=== PATIENT | female | born 1990 | race Caucasian/White ===

== ENCOUNTER 2023-09-26 09:44 | Outpatient (CLI) | payer BC, SELFPAY ==
--- NOTE | 2023-09-26 10:15 | MR_ITS ---
Patient: TAMMY MIRANDA Facility:?[facility] Patient ID:?[id number] Site Patient ID:?[id number]. Site :?[id number] Study:?MRI-Spine Lumbar W/O-09/26/2023 10:36:39 AM Ordering Physician:TAMMY PÉREZ Final Report: INDICATION: Low back pain. Left leg and foot pain. TECHNIQUE: Multiplanar multisequence MR imaging of the lumbar spine without intravenous contrast. COMPARISON: None. FINDINGS: The lumbar lordosis is preserved. Mild rightward lumbar curvature. Vertebral heights maintained. No acute fracture or spondylolisthesis. No T1 hypointense lesions. Normal conus terminates at T12-L1. T12-L1 through L3-4: No spinal canal or neural foraminal narrowing. L4-5: Mild disc degeneration and disc height loss. Shallow posterior disc bulge. Endplate spondylitic ridging. No spinal canal narrowing. Minimal right without left neural foraminal narrowing. L5-S1: Moderate disc degeneration. Disc height loss associated with mild vertebral body edema as well as more pronounced type 2 degenerative signal changes. Circumferential disc bulge. Endplate spondylitic ridging. Left central/subarticular disc extrusion extending 10 mm posterior to the endplate margin and demonstrating cephalad as well as caudal migration severely narrows the left lateral recess with likely impingement of traversing left S1 nerve roots. Mild spinal canal narrowing. No neural foraminal narrowing. IMPRESSION: 1. At L5-S1, left central/subarticular disc extrusion severely narrows the left lateral recess with likely impingement of traversing left S1 nerve roots. Mild spinal canal narrowing. 2. No spinal canal or neural foraminal stenosis. Dictated by Jemal Damian MD @ 09/26/2023 12:37:30 PM Signed by:?Jemal Damian MD @09/26/2023 12:37:30 PM (Electronic Signature)
== END 2023-09-26 09:45 | disposition home or self-care (01) ==
LOC: MRI 09:47
PROVIDERS: Visit Provider Family Medicine
DX: M54.50 Low back pain, unspecified (principal); M51.26 Other intervertebral disc displacement, lumbar region; M79.605 Pain in left leg
CPT/HCPCS: 72148

== ENCOUNTER 2023-11-28 11:15 | Outpatient (RCR) | payer BC, SELFPAY | END 2023-12-28 08:39 | disposition home or self-care (01) | PROVIDERS: Visit Provider Family Medicine | DX: M51.26 Other intervertebral disc displacement, lumbar region (principal); R53.1 Weakness; R52 Pain, unspecified; R20.2 Paresthesia of skin; Z51.89 Encounter for other specified aftercare | CPT/HCPCS: 97012; 97110; 97162; 97535 ==

== ENCOUNTER 2024-03-21 10:28 | Outpatient (CLI) | payer BC, SELFPAY | END 2024-03-21 10:29 | disposition home or self-care (01) | PROVIDERS: PCP Physician Assistant Medical; Visit Provider Physician Assistant Medical | DX: Z13.220 Encounter for screening for lipoid disorders (principal); E28.2 Polycystic ovarian syndrome; E66.9 Obesity, unspecified | CPT/HCPCS: 80061; 84443 ==